=== PATIENT | female | born 1985 | race Caucasian/White ===

== ENCOUNTER → 2017-02-12 | Outpatient (CLI) | payer OTHER ==
[~2017-02-12] MED LIST: BENADRYL25 M1 PO; CLEOCIN HCL300 M1 PO; DICYCLOMINE HCL20 MG PO; DULCOLAX5 MG PO; IBUPROFEN800 MG PO; LORTAB 5/500 TA1 TA1; MACROBID 100 M100 MG PO; ORUDIS75 M1 PO; PREDNISONE PO; PYRIDIUM PO; ULTRAM PO
--- NOTE | ~2017-02-12 | CR210 ---
[facility] A Service of [facility] RADIOLOGY TEXT RESULTS PATIENT: VICTORH UGO VELA LOCATION: SRAD : 85 UNIT #: [id number] AGE: [address]: Daniel Frias MD SEX: F ORDER DR: [id number] [place] [id number] O MR#: [id number] Acc #: [id number] NAME: VICTOR HUGO VELA : 1985 SEX: F STUDY DATE/TIME: 02/12/2017 16:36 UNIT: SRAD ROOM: STUDY DESCRIPTION: CR Ribs Uni 2 View W PA Ch Lt Attending Physician: Daniel Frias M.D. Referring Physician: Daniel Frias M.D. Ordering Physician: Daniel Frias M.D. Primary Care Physician: No Primary Care Physician MEDICAL IMAGING REPORT This report is preliminary unless electronic signature is present. EXAM Left rib series with PA chest. DATE OF EXAM 02/12/2017 INDICATIONS 31-year-old female with pain in lower axillary area after falling 2 days ago. COMPARISON There are no comparisons. FINDINGS AP and oblique views of the left ribs demonstrate no evidence of displaced rib fracture. PA view of the chest is within normal limits. IMPRESSION No evidence of displaced rib fracture. Dictated by... Khurram Hatch M.D. THIS IS AN ELECTRONICALLY VERIFIED REPORT Khurram Hatch M.D. at 02/15/2017 8:00 AM JEAN PAUL/iqra TD: 02/12/2017 23:14 JOB #: [id number] MEDICAL IMAGING REPORT [facility]. [facility] A Service [facility] RADIOLOGY TEXT RESULTS PATIENT: VICTOR HUGO VELA LOCATION: SRAD : 85 UNIT #: [id number] AGE: [address]: Daniel Frias MD SEX: F ORDER DR: Page 1 of 1
== END | disposition home or self-care (01) ==
LOC: SRAD 16:27
DX: R07.81 Pleurodynia (principal)
CPT/HCPCS: 71100